=== PATIENT | female | born 1980 | race African-American/Black ===

== ENCOUNTER → 2017-11-13 | Day surgery (SDC) | payer OTHER ==
[~2017-11-13] VITALS: Ht 175.3 cm; Wt 76.2 kg
[~2017-11-13] MED LIST: ADVIL100 MG PO; BENADRYL25 MG PO; BIOTIN1 M1 PO; DILAUDID2 M1 PO; IBUPROFEN800 M1 PO; KETOROLAC TROME10 M1 PO; MEDROL4 M2 PO; PERCOCET 5-3251 EACH PO; PRE-NATAL1 TAB PO; PRENATAL TABLE1 EAC2 PO; ZITHROMAX250 M2 PO
--- NOTE | 2017-11-18 13:13 | Operative Report ---
Operative/Inv Procedure Report Surgery Date: 11/13/17 Name of Procedure: Diagnostic laparoscopy aspiration of cul-de-sac fluid Pre-Operative Diagnosis: Pelvic pain Post-Operative Diagnosis: Same Estimated Blood Loss: less than 50ml Surgeon/Static Balancer: Ralf LEONARD,Coby Banegas Anesthesia: general endotracheal tube Operative/Procedure Note Note: Patient was taken the operating room placed on position after adequate anesthesia patient placed in dorsolithotomy position vagina prepped draped so fashion bladder was catheterized examination under anesthesia performed single- tooth tenaculum placed on the Intralipid cervix gentle downward traction patient tolerated this at this point surgeon regowned and gloved at the level of the umbilicus a stab incision made to allow for the entry of Veress needle the abdomen was insufflated possibly fully Z CO2 to liver edge dullness I at this point the at the umbilicus the sheath was placed at the umbilicus through that sheath a laparoscope placed under direct visualization a 5 mm port was placed to bring minutes of the symphysis pubis in midline patient aren't that well at this point the fluid was collected from the cul-de-sac and sent to pathology on since removed from the abdomen after an adequate amount of pictures were taken a maximum amount CO2 was removed incision the umbilicus was oversewn using 0 for the fascia 30 for both skin incisions Marcaine was injected underneath both skin incisions patient tolerated that well at the end of the case the counts correct the [place] cannula was moved the [place] was removed the patient was extubated and transferred recovery room awake alert counts correct
== END ==
LOC: STS 07:00
DX: R10.2 Pelvic and perineal pain (principal); J45.909 Unspecified asthma, uncomplicated
CPT/HCPCS: 81025; 88305; J0131; J2250; J3490